=== PATIENT | female | born 1950 | race Caucasian/White ===

== ENCOUNTER 2022-07-10 10:41 | Inpatient (IN) | payer MEDICARE, OTHER ==
--- NOTE | 2022-07-10 10:53 | ERPHSYRPT ---
- History of Present Illness Time Seen by Provider: 07/10/22 10:53 Source: patient Exam Limitations: no limitations Physician History: This is a 72-year-old obese white female who sees nurse practitioner Anabel Watkins and presents with shortness of air that began approximately 1 week ago and is worsening. This morning the shortness of air became significant enough where she had to stop and hold onto a towel rack. Patient also has some edema in bilateral lower extremities in the left lower leg is worse than the right. Patient does not have any history of bleeding or clotting disorders. There is been no recent long travel. Patient is a current daily smoker of cigarettes. Patient has a history of hypertension, diabetes and hypothyroidism. Patient denies chest pain. She denies abdominal pain. Timing/Duration: week(s) (1), worse Severity of Dyspnea-Max: moderate Severity of Dyspnea-Current: moderate Possible Cause: no prior episodes Modifying Factors: Improves With: rest (Improves) Associated Symptoms: ankle swelling (Bilateral left greater than right), leg swelling (Bilateral left greater than right) Allergies/Adverse Reactions: No Known Drug Allergies Allergy (Verified 07/10/22 10:42) Home Medications: Glimepiride 4 mg [Amaryl 4 mg] 4 mg PO DAILY 09/06/14 [History] Levothyroxine Sodium 150 Mcg [Synthroid 150 Mcg] 150 mcg PO DAILY 09/06/14 [History] Pioglitazone 30 mg [Actos 30 MG] 30 mg PO DAILY 09/06/14 [History] Propranolol HCl 10 mg [Inderal 10 MG] 10 mg PO DAILY 09/06/14 [History] Triamterene/Hydrochlorothiazid [Triamterene-Hctz 75-50 mg Tab] 1 mg PO DAILY 09/06/14 [History] lisinopriL [Lisinopril] 5 mg PO DAILY 09/06/14 [History] Travel Risk - International Travel Have you traveled outside of the country in past 3 weeks: No - Coronavirus Screening Are you exhibiting any of the following symptoms?: Yes Symptoms: Shortness of Breath Close contact with a COVID-19 positive Pt in past 14-21 Days: No - Review of Systems Constitutional: No Symptoms Eyes: No Symptoms Ears, Nose, & Throat: No Symptoms Respiratory: Dyspnea Cardiac: No Symptoms Abdominal/Gastrointestinal: No Symptoms Genitourinary Symptoms: No Symptoms Musculoskeletal: Other (Bilateral lower extremity swelling left greater than right) Skin: No Symptoms Neurological: No Symptoms Psychological: No Symptoms Endocrine: No Symptoms Hematologic/Lymphatic: No Symptoms Immunological/Allergic: No Symptoms All Other Systems: Reviewed and Negative - Past Medical History Pertinent Past Medical History: No Neurological History: No Pertinent History ENT History: Cataracts Cardiac History: Hypertension Respiratory History: No Pertinent History Endocrine Medical History: Diabetes Type II, Hypothyroidism Musculoskeletal History: No Pertinent History GI Medical History: Gallbladder Disease History: No Pertinent History Psycho-Social History: No Pertinent History Female Reproductive Disorders: No Pertinent History - Past Surgical History Past Surgical History: Yes Neuro Surgical History: No Pertinent History Cardiac: No Pertinent History Respiratory: No Pertinent History Gastrointestinal: Cholecystectomy Genitourinary: No Pertinent History Musculoskeletal: No Pertinent History Female Surgical History: Other Other Surgical History: right breast lumpectomy - Social History Smoking Status: Current every day smoker How long have you smoked: 20 Exposure to second hand smoke: Yes Drug Use: none - Nursing Vital Signs Nursing Vital Signs: Initial Vital Signs Temperature 97.3 F 07/10/22 10:43 Pulse Rate 91 H 07/10/22 10:43 Respiratory Rate 20 07/10/22 10:43 Blood Pressure 179/93 07/10/22 10:43 O2 Sat by Pulse Oximetry 97 07/10/22 10:43 Pain Scale Pain Intensity 0 - Physical Exam General Appearance: no apparent distress, alert, anxiety, obese Eye Exam: PERRL/EOMI, eyes nml inspection Ears, Nose, Throat Exam: hearing grossly normal, normal ENT inspection, normal pharynx Neck Exam: normal inspection, non-tender, supple, full range of motion Respiratory Exam: normal breath sounds, lungs clear, airway intact, No chest tenderness, No respiratory distress Cardiovascular/Chest Exam: normal heart sounds, regular rate/rhythm Abdominal/Gastrointestinal Exam: soft, normal bowel sounds, No tenderness Rectal Exam: not done Extremity Exam: non-tender, normal range of motion, pedal edema (Bilateral lower extremity left greater than right), swelling (Bilateral lower extremity left greater than right) Neurologic Exam: alert, oriented x 3, cooperative, smoking pipe maker II-XII nml as tested, normal mood/affect, nml cerebellar function, nml station & gait, sensation nml Skin Exam: normal color, warm, dry Lymphatic Exam: No adenopathy SpO2 Interpretation: normal O2 Delivery: Room Air - Course Nursing assessment & vital signs reviewed: Yes EKG Interpreted by Me: RATE (72), Sinus Rhythm, NORMAL AXIS, NORMAL INTERVALS, Right Bundle Branch Block, NORMAL ST-T, Other (No acute ischemic changes on to day's EKG. This twelve-lead EKG was interpreted by me) Ordered Tests: Active Orders 24 hr Category Date Time Status EKG-ER Only STAT Care 07/10/22 11:04 Active IV Insertion STAT Care 07/10/22 11:04 Active Pulse Oximetry (ED) STAT Care 07/10/22 11:04 Active CHEST 1 VIEW (PORTABLE) Stat Exams 07/10/22 11:05 Completed CHEST WITH CONTRAST [CT] Stat Exams 07/10/22 12:13 Completed VENOUS UNILAT/LIMITED EXTREMIT [US] Stat Exams 07/10/22 11:03 Completed CBC W DIFF Stat Lab 07/10/22 11:15 Completed CMP Stat Lab 07/10/22 11:15 Completed D-DIMER QUANTITATIVE Stat Lab 07/10/22 11:15 Completed NT PRO BNP Stat Lab 07/10/22 11:15 Completed TROPONIN Q4H Lab 07/10/22 11:15 Completed TROPONIN Q4H Lab 07/10/22 15:15 Ordered TROPONIN Q4H Lab 07/10/22 19:15 Ordered Transfer Order Routine Transfer 07/10/22 Ordered Medication Summary Discontinued Medications Generic Name Dose Route Start Last Admin Trade Name Freq PRN Reason Stop Dose Admin Enoxaparin Sodium 100 mg 07/10/22 13:15 Enoxaparin Sodium 120 Mg/0.8 Ml Syringe SQ 07/10/22 13:16 STAT STA Sodium Chloride 500 mls @ 500 mls/hr 07/10/22 12:13 07/10/22 12:49 Sodium Chloride 0.9% 500 Ml IV 07/10/22 13:12 500 mls/hr .Q1H ONE Administration Sodium Chloride Confirm 07/10/22 12:47 Sodium Chloride 0.9% 500 Ml Administered 07/10/22 12:48 Dose 500 mls @ ud IV .STK-MED ONE Lab/Rad Data: Laboratory Result Diagrams 07/10/22 11:15 07/10/22 11:15 Laboratory Results 07/10/22 07/10/22 07/10/22 Range/Units 11:15 11:15 11:15 WBC (4.0-10.5) x10^3/uL RBC (4.1-5.4) x10^6/uL Hgb (12.0-16.0) g/dL Hct (35-47) % MCV (78-100) fL MCH (26-32) pg MCHC (32-36) g/dL RDW (11.5-14.0) % Plt Count (150-450) x10^3/uL MPV (7.5-11.0) fL Gran % (36.0-66.0) % Immature Gran % (Auto) (0.00-0.4) % Nucleat RBC Rel Count (0.00-0.1) % Eos # (Auto) (0-0.5) x10^3/uL Immature Gran # (Auto) (0.00-0.03) x10^3u/L Absolute Lymphs (auto) (1.0-4.6) x10^3/uL Absolute Monos (auto) (0.0-1.3) x10^3/uL Absolute Nucleated RBC (0.00-0.01) x10^3u/L Lymphocytes % (24.0-44.0) % Monocytes % (0.0-12.0) % Eosinophils % (0.00-5.0) % Basophils % (0.0-0.4) % Absolute Granulocytes (1.4-6.9) x10^3/uL Basophils # (0-0.4) x10^3/uL D-Dimer 4.98 H* (0.0-0.50) mg/L Sodium (137-145) mmol/L Potassium (3.5-5.1) mmol/L Chloride (98-107) mmol/L Carbon Dioxide (22-30) mmol/L Anion Gap (5-15) MEQ/L BUN (7-17) mg/dL Creatinine (0.52-1.04) mg/dL Estimated GFR ML/MIN Glucose (74-106) mg/dL Calcium (8.4-10.2) mg/dL Total Bilirubin (0.2-1.3) mg/dL AST (14-36) U/L ALT (0-35) U/L Alkaline Phosphatase (38-126) U/L Troponin I 0.017 (0.000-0.034) ng/mL NT-Pro-B Natriuret Pep (0-900) pg/mL Serum Total Protein (6.3-8.2) g/dL Albumin (3.5-5.0) g/dL Influenza Type A Ag NEGATIVE (NEGATIVE) Influenza Type B Ag NEGATIVE (NEGATIVE) RSV (PCR) NEGATIVE (Negative) SARS-CoV-2 (PCR) NEGATIVE (NEGATIVE) 07/10/22 07/10/22 Range/Units 11:15 11:15 WBC 8.0 (4.0-10.5) x10^3/uL RBC 5.14 (4.1-5.4) x10^6/uL Hgb 15.3 (12.0-16.0) g/dL Hct 46.5 (35-47) % MCV 90.5 (78-100) fL MCH 29.8 (26-32) pg MCHC 32.9 (32-36) g/dL RDW 14.7 H (11.5-14.0) % Plt Count 230 (150-450) x10^3/uL MPV 10.4 (7.5-11.0) fL Gran % 66.4 H (36.0-66.0) % Immature Gran % (Auto) 1.1 H (0.00-0.4) % Nucleat RBC Rel Count 0.0 (0.00-0.1) % Eos # (Auto) 0.04 (0-0.5) x10^3/uL Immature Gran # (Auto) 0.09 H (0.00-0.03) x10^3u/L Absolute Lymphs (auto) 1.90 (1.0-4.6) x10^3/uL Absolute Monos (auto) 0.62 (0.0-1.3) x10^3/uL Absolute Nucleated RBC 0.00 (0.00-0.01) x10^3u/L Lymphocytes % 23.7 L (24.0-44.0) % Monocytes % 7.7 (0.0-12.0) % Eosinophils % 0.5 (0.00-5.0) % Basophils % 0.6 (0.0-0.4) % Absolute Granulocytes 5.32 (1.4-6.9) x10^3/uL Basophils # 0.05 (0-0.4) x10^3/uL D-Dimer (0.0-0.50) mg/L Sodium 132 L (137-145) mmol/L Potassium 3.6 (3.5-5.1) mmol/L Chloride 94 L (98-107) mmol/L Carbon Dioxide 33 H (22-30) mmol/L Anion Gap 9.0 (5-15) MEQ/L BUN 17 (7-17) mg/dL Creatinine 0.92 (0.52-1.04) mg/dL Estimated GFR > 60.0 ML/MIN Glucose 286 H (74-106) mg/dL Calcium 9.4 (8.4-10.2) mg/dL Total Bilirubin 0.70 (0.2-1.3) mg/dL AST 24 (14-36) U/L ALT 21 (0-35) U/L Alkaline Phosphatase 70 (38-126) U/L Troponin I (0.000-0.034) ng/mL NT-Pro-B Natriuret Pep 851 (0-900) pg/mL Serum Total Protein 7.1 (6.3-8.2) g/dL Albumin 4.1 (3.5-5.0) g/dL Influenza Type A Ag (NEGATIVE) Influenza Type B Ag (NEGATIVE) RSV (PCR) (Negative) SARS-CoV-2 (PCR) (NEGATIVE) - Progress Progress: improved Air Movement: good Progress Note: 07/10/22 13:09 Chest x-ray is negative for any acute cardiopulmonary process. This x-ray was reviewed and interpreted by me. Venous Doppler left lower extremity is negative for DVT. CTA of chest shows diffuse, bilateral nonoccluding pulmonary emboli. Medical decision making: This patient has highly complex medical issue. The patient history, which I obtained from the patient and additional history from the the patient's , plus the physical findings on physical exam and evaluation interpretation of the patient's vital signs prompted me to order a series of blood work, perform a twelve-lead EKG as well as performing venous Doppler of left lower extremity and chest x-ray. I interpreted the chest x-ray and the above-stated findings as listed. The patient had borderline hypoxia, she denied chest pain, there is no evidence of pneumonia but there is bilateral, diffuse nonoccluding pulmonary emboli present. Based on all of the above and after discussion of all the above with Dr. Delgado Brown who is a hospitalist. Together, we formulated a plan and will be admitting the patient into the hospital on a monitored bed and provide the patient with a subcutaneous dose of Lovenox 100 mg and add Eliquis orally. We will be repeating labs in the morning. This plan was also discussed with the patient the patient's spouse Blood Culture(s) Obtained: Yes Antibiotics given: No Discussed with : Kerry Counseled pt/family regarding: lab results, diagnosis, need for follow-up, rad results - Departure Departure Disposition: In-patient Admission Clinical Impression: Hypoxia, Pulmonary emboli Condition: Stable Critical Care Time: Yes Critical Care Time(excluding separately billable procedures): Critical 30-74 mins (45 minutes) Referrals: DANIEL WATKINS NP [Primary Care Provider] - Follow up/PCP as directed
[2022-07-10 11:20] LABS: Absolute Neutrophil Ct (ANC) 5.32 x10^3/uL (1.4-6.9); BASOPHIL % 0.6 % (0.0-0.4); Basophil (Absolute #) 0.05 x10^3/uL (0-0.4); Eosinophil % 0.5 % (0.00-5.0); Eosinophil (Absolute #) 0.04 x10^3/uL (0-0.5); Hematocrit 46.5 % (35-47); Hemoglobin 15.3 g/dL (12.0-16.0); IMMATURE GRAN # 0.09 x10^3u/L (0.00-0.03); IMMATURE GRAN % 1.1 % (0.00-0.4); Lymphocytes % 23.7 % (24.0-44.0); Mean Cell Volume 90.5 fL (78-100); Mean Corpuscular Hemoglobin 29.8 pg (26-32); Mean Corpuscular Hgb Concent. 32.9 g/dL (32-36); Mean Platelet Volume 10.4 fL (7.5-11.0); Monocyte (Absolute #) 0.62 x10^3/uL (0.0-1.3); Monocytes % 7.7 % (0.0-12.0); Neutrophil % 66.4 % (36.0-66.0); Platelet Count 230 x10^3/uL (150-450); Red Blood Count 5.14 x10^6/uL (4.1-5.4); Red Cell Distribution Width 14.7 % (11.5-14.0)
--- NOTE | 2022-07-10 11:34 | XRAY ---
Indication: Short of breath one month. Comparison: None Portable chest demonstrates normal heart and lungs. Bony thorax intact with osteopenia and mild degenerative changes.
[2022-07-10 11:56] LABS: ALBUMIN 4.1 g/dL (3.5-5.0); ALKALINE PHOSPHATASE 70 U/L (38-126); BLOOD UREA NITROGEN 17 mg/dL (7-17); CHLORIDE 94 mmol/L (98-107); Calcium 9.4 mg/dL (8.4-10.2); Carbon Dioxide 33 mmol/L (22-30); Creatinine 1 0.92 mg/dL (0.52-1.04); EST GLOMERULAR FILTRATION RATE > 60.0 ML/MIN; Glucose 286 mg/dL (74-106); NT PRO BNP 851 pg/mL (0-900); Potassium 3.6 mmol/L (3.5-5.1); SGOT/AST 24 U/L (14-36); SGPT/ALT 21 U/L (0-35); SODIUM 132 mmol/L (137-145); Total Protein 7.1 g/dL (6.3-8.2)
[2022-07-10 12:03] LABS: INFLUENZA A NEGATIVE (NEGATIVE); INFLUENZA B NEGATIVE (NEGATIVE); RESPIRATORY SYNCTIAL VIRUS NEGATIVE (Negative); SARS-CoV-2 Xpert Express NEGATIVE (NEGATIVE)
--- NOTE | 2022-07-10 12:10 | XRAY ---
Indication: Left leg swelling. Short of breath. Two-dimensional sonogram and color Doppler imaging of the major venous vessels of the left leg performed. Comparison: None No thrombus seen in the examined deep venous vessels of the left leg including greater saphenous vein. Veins demonstrate normal compressibility. Venous waveforms are normal with and without augmentation. Impression: Left leg negative for DVT.
[2022-07-10] MEDS ORDERED: Sodium Chloride 0.9% 500 ML 500 ML IV ONE ×2 (12:13→12:47)
--- NOTE | 2022-07-10 12:54 | XRAY ---
Indication: Short of breath. Pulmonary embolus. Negative left leg venous ultrasound. Multiple contiguous axial images obtained through the chest using 80 cc Isovue 370 contrast and PE protocol. Comparison: None Good opacification of the pulmonary arteries to include the lobar and segmental branches. Nonoccluding pulmonary emboli seen in the distal right main pulmonary artery extending into all right lung lobar branches. Lesser nonoccluding pulmonary emboli seen in the distal left main pulmonary artery also extending into lobar/segmental branches. Heart not enlarged. Aorta is mildly arteriosclerotic without aneurysm/dissection. No pathologic mediastinal/hilar lymphadenopathy. Lungs are inflated and clear. Osseous structures intact with flowing osteophytes throughout the spine. Limited upper abdomen demonstrates 1 cm left lobe and 2.3 cm right lobe hypodense lesions with centripetal enhancement favoring hemangiomas. Impression: 1. Diffuse nonoccluding bilateral pulmonary emboli as detailed. 2. Incidental hepatic hypodense lesions with centripetal enhancement favoring hemangiomas.
[2022-07-10] MEDS ORDERED: ENOXAPARIN SODIUM SQ STA (13:15)
[2022-07-10] MEDS ORDERED: ENOXAPARIN SODIUM SQ ONE (13:32)
[2022-07-10] MEDS ORDERED: HUMULIN R SQ PRN (13:47)
[2022-07-10] MEDS ORDERED: TYLENOL 325 MG PO PRN (13:47)
[2022-07-10] MEDS ORDERED: Zofran 4 MG/2 ML VIAL IV PRN (13:47)
[2022-07-10] MEDS: Sodium Chloride 0.9% 1000 ML 1,000 ML IV SCH (14:02)
[2022-07-10] MEDS: ELIQUIS 2.5 MG TABLET PO SCH (21:07)
[2022-07-11 05:12] LABS: Absolute Neutrophil Ct (ANC) 3.31 x10^3/uL (1.4-6.9); BASOPHIL % 0.8 % (0.0-0.4); Basophil (Absolute #) 0.05 x10^3/uL (0-0.4); Eosinophil % 0.8 % (0.00-5.0); Eosinophil (Absolute #) 0.05 x10^3/uL (0-0.5); Hematocrit 43.6 % (35-47); Hemoglobin 14.2 g/dL (12.0-16.0); IMMATURE GRAN # 0.05 x10^3u/L (0.00-0.03); IMMATURE GRAN % 0.8 % (0.00-0.4); Lymphocyte (Absolute #) 2.17 x10^3/uL (1.0-4.6); Lymphocytes % 35.1 % (24.0-44.0); Mean Corpuscular Hemoglobin 29.6 pg (26-32); Mean Corpuscular Hgb Concent. 32.6 g/dL (32-36); Mean Platelet Volume 10.3 fL (7.5-11.0); Monocyte (Absolute #) 0.56 x10^3/uL (0.0-1.3); Neutrophil % 53.5 % (36.0-66.0); Platelet Count 206 x10^3/uL (150-450); Red Blood Count 4.79 x10^6/uL (4.1-5.4); Red Cell Distribution Width 14.7 % (11.5-14.0); White Blood Count 6.2 x10^3/uL (4.0-10.5)
[2022-07-11 06:02] LABS: INR 1.08 (0.8-3.0); PROTIME 11.4 SECONDS (9.4-12.5)
[2022-07-11 06:24] LABS: ALBUMIN 3.7 g/dL (3.5-5.0); ANION GAP 7.8 MEQ/L (5-15); BILIRUBIN,TOTAL 0.5 mg/dL (0.2-1.3); Creatinine 1 0.98 mg/dL (0.52-1.04); Potassium 3.2 mmol/L (3.5-5.1); Total Protein 6.7 g/dL (6.3-8.2)
[2022-07-11] MEDS: AMARYL 4 MG PO SCH (07:38)
[2022-07-11] MEDS ORDERED: HOLD METFORMIN PRODUCTS FOR 48 HOURS MC SCH (09:00)
[2022-07-11] MEDS: Zestril 5 MG PO SCH (09:04)
[2022-07-11] MEDS: Actos 30 MG PO SCH (09:04)
[2022-07-11] MEDS: Inderal PO SCH (09:04)
[2022-07-11] MEDS: SYNTHROID 150 MCG PO SCH (09:04)
[2022-07-11] MEDS: Maxzide-25MG Tablet PO SCH (09:04)
[2022-07-11] MEDS: ELIQUIS 2.5 MG TABLET PO SCH ×2 (09:05→21:12)
[2022-07-11] MEDS ORDERED: PROPRANOLOL HCL 10 MG PO SCH (10:00)
[2022-07-11 10:40] LABS: Appearance Cloudy (Clear); Bacteria Few /HPF (None Seen); Bilirubin Negative (Negative); Blood Large (Negative); Epithelial Cells Few /HPF (None Seen); Glucose, Urine Negative (Negative); Ketones Negative (Negative); Leukocyte Esterase Moderate (Negative); Nitrite Negative (Negative); Protein,Urine Dip Trace (Negative); Specific Gravity >=1.030 (1.005-1.030); WBC 51-100 /HPF (0-5)
[2022-07-11 10:42] LABS: ADD URINE CULTURE? YES (NO)
[2022-07-11] MEDS: Sodium Chloride 0.9% 1000 ML 1,000 ML IV SCH (10:59)
--- NOTE | 2022-07-11 13:05 | PCM.HP ---
History of Present Illness - Chief Complaint Chief Complaint: PE History of Present Illness: is a 72 year old female pt of [facility] with HTN, DM II, hypothyroidism, daily TOB smoker who was admitted through ER with bilat PEs (non-occluding). She had a swollen LLE which was neg for DVT. WBC nl. Na low at 132 (is 137 today). Pt had been SOB x 1 week, worsening. Denies CP or palpitations. Today she is having cough and drainage. She was given 1 dose of lovenox SQ, and is being started on Eliquis. - Review of Systems Ears, Nose, & Throat: Sinus Drainage Respiratory: Cough, Short Of Breath Cardiac: Edema All Other Systems: Reviewed and Negative Medications & Allergies Home Medications: Home Medication List Glimepiride 4 mg [Amaryl 4 mg] 4 mg PO DAILY 09/06/14 [History Confirmed 07/10/22] Levothyroxine Sodium 150 Mcg [Synthroid 150 Mcg] 150 mcg PO DAILY 09/06/14 [History Confirmed 07/10/22] Pioglitazone 30 mg [Actos 30 MG] 30 mg PO DAILY 09/06/14 [History Confirmed 07/10/22] Propranolol HCl 10 mg [Inderal 10 MG] 10 mg PO DAILY 09/06/14 [History Confirmed 07/10/22] Triamterene/Hydrochlorothiazid [Triamterene-Hctz 75-50 mg Tab] 1 mg PO DAILY 09/06/14 [History Confirmed 07/10/22] lisinopriL [Lisinopril] 5 mg PO DAILY 09/06/14 [History Confirmed 07/10/22] Allergies/Adverse Reactions: Allergies Allergy/AdvReac Type Severity Reaction Status Date / Time No Known Drug Allergies Allergy Verified 07/10/22 10:42 - Past Medical History Past Medical History: No Neurological History: No Pertinent History ENT History: Cataracts Cardiac History: Hypertension Respiratory History: No Pertinent History Endocrine Medical History: Diabetes Type II, Hypothyroidism Musculoskelatal History: No Pertinent History GI Medical History: Gallbladder Disease History: No Pertinent History Pyscho-Social History: No Pertinent History Reproductive Disorders: No Pertinent History - Female History Are you now?: No - Past Surgical History Past Surgical History: Yes Neuro Surgical History: No Pertinent History Cardiac History: No Pertinent History Respiratory Surgery: No Pertinent History GI Surgical History: Cholecystectomy Genitourinary Surgical Hx: No Pertinent History Musculskeletal Surgical Hx: No Pertinent History Female Surgical History: Other Other Surgical History: right breast lumpectomy - Social History Smoking Status: Current every day smoker How long have you smoked: 20 Exposure to second hand smoke: Yes Alcohol: None Drug Use: none - Physical Exam Vital Signs: Vital Signs - 24 hr Temp Pulse Resp BP Pulse Ox 07/11/22 11:01 97.7 F 66 17 138/63 94 L 07/11/22 07:31 97.5 F 72 18 130/61 96 07/11/22 05:44 94 L 07/11/22 04:00 97.7 F 66 19 127/58 93 L 07/11/22 00:00 98.0 F 65 18 128/64 95 07/10/22 17:56 95 07/10/22 16:53 96 07/10/22 16:31 96.9 F 69 17 152/66 93 L 07/10/22 13:58 62 18 94 L 07/10/22 13:48 97.1 F 66 18 145/91 07/10/22 13:47 96 07/10/22 13:28 97.3 F 74 18 155/71 92 L General Appearance: no apparent distress, alert, obese Neurologic Exam: oriented x 3, cooperative Eye Exam: eyes nml inspection Ears, Nose, Throat Exam: moist mucous membranes Neck Exam: normal inspection Respiratory Exam: normal breath sounds, lungs clear, No crackles/rales, No rhonchi, No wheezing Cardiovascular Exam: regular rate/rhythm, normal heart sounds, No murmur Gastrointestinal/Abdomen Exam: soft, normal bowel sounds, No tenderness, No distention, No mass, No guarding, No rebound Back Exam: normal inspection, No rash Extremity Exam: swelling (LLE 1+, RLE trace) Results - Labs Lab/Micro Results: Lab Results-Last 24 Hours 07/10/22 07/10/22 07/10/22 Range/Units 15:28 17:00 19:45 WBC (4.0-10.5) x10^3/uL RBC (4.1-5.4) x10^6/uL Hgb (12.0-16.0) g/dL Hct (35-47) % MCV (78-100) fL MCH (26-32) pg MCHC (32-36) g/dL RDW (11.5-14.0) % Plt Count (150-450) x10^3/uL MPV (7.5-11.0) fL Gran % (36.0-66.0) % Immature Gran % (Auto) (0.00-0.4) % Nucleat RBC Rel Count (0.00-0.1) % Eos # (Auto) (0-0.5) x10^3/uL Immature Gran # (Auto) (0.00-0.03) x10^3u/L Absolute Lymphs (auto) (1.0-4.6) x10^3/uL Absolute Monos (auto) (0.0-1.3) x10^3/uL Absolute Nucleated RBC (0.00-0.01) x10^3u/L Lymphocytes % (24.0-44.0) % Monocytes % (0.0-12.0) % Eosinophils % (0.00-5.0) % Basophils % (0.0-0.4) % Absolute Granulocytes (1.4-6.9) x10^3/uL Basophils # (0-0.4) x10^3/uL PT (9.4-12.5) SECONDS INR (0.8-3.0) Sodium (137-145) mmol/L Potassium (3.5-5.1) mmol/L Chloride (98-107) mmol/L Carbon Dioxide (22-30) mmol/L Anion Gap (5-15) MEQ/L BUN (7-17) mg/dL Creatinine (0.52-1.04) mg/dL Estimated GFR ML/MIN Glucose (74-106) mg/dL POC Glucometer 131 H (74 to 106) mg/dL Calcium (8.4-10.2) mg/dL Total Bilirubin (0.2-1.3) mg/dL AST (14-36) U/L ALT (0-35) U/L Alkaline Phosphatase (38-126) U/L Troponin I 0.014 0.017 (0.000-0.034) ng/mL Serum Total Protein (6.3-8.2) g/dL Albumin (3.5-5.0) g/dL Urine Color (Yellow) Urine Appearance (Clear) Urine pH (4.6-8.0) Ur Specific [place] (1.005-1.030) Urine Protein (Negative) Urine Glucose (UA) (Negative) mg/dL Urine Ketones (Negative) Urine Blood (Negative) Urine Nitrite (Negative) Urine Bilirubin (Negative) Urine Urobilinogen (0.2) mg/dL Ur Leukocyte Esterase (Negative) U Hyaline Cast (Auto) (0-2) /LPF Urine Microscopic RBC (0-5) /HPF Urine Microscopic WBC (0-5) /HPF Ur Epithelial Cells (None Seen) /HPF Urine Bacteria (None Seen) /HPF Urine Culture Reflexed (NO) 07/10/22 07/11/22 07/11/22 Range/Units 20:31 05:12 05:12 WBC 6.2 (4.0-10.5) x10^3/uL RBC 4.79 (4.1-5.4) x10^6/uL Hgb 14.2 (12.0-16.0) g/dL Hct 43.6 (35-47) % MCV 91.0 (78-100) fL MCH 29.6 (26-32) pg MCHC 32.6 (32-36) g/dL RDW 14.7 H (11.5-14.0) % Plt Count 206 (150-450) x10^3/uL MPV 10.3 (7.5-11.0) fL Gran % 53.5 (36.0-66.0) % Immature Gran % (Auto) 0.8 H (0.00-0.4) % Nucleat RBC Rel Count 0.0 (0.00-0.1) % Eos # (Auto) 0.05 (0-0.5) x10^3/uL Immature Gran # (Auto) 0.05 H (0.00-0.03) x10^3u/L Absolute Lymphs (auto) 2.17 (1.0-4.6) x10^3/uL Absolute Monos (auto) 0.56 (0.0-1.3) x10^3/uL Absolute Nucleated RBC 0.00 (0.00-0.01) x10^3u/L Lymphocytes % 35.1 (24.0-44.0) % Monocytes % 9.0 (0.0-12.0) % Eosinophils % 0.8 (0.00-5.0) % Basophils % 0.8 (0.0-0.4) % Absolute Granulocytes 3.31 (1.4-6.9) x10^3/uL Basophils # 0.05 (0-0.4) x10^3/uL PT (9.4-12.5) SECONDS INR (0.8-3.0) Sodium 137 (137-145) mmol/L Potassium 3.2 L (3.5-5.1) mmol/L Chloride 98 (98-107) mmol/L Carbon Dioxide 34 H (22-30) mmol/L Anion Gap 7.8 (5-15) MEQ/L BUN 17 (7-17) mg/dL Creatinine 0.98 (0.52-1.04) mg/dL Estimated GFR 59.0 ML/MIN Glucose 92 (74-106) mg/dL POC Glucometer 194 H (74 to 106) mg/dL Calcium 9.0 (8.4-10.2) mg/dL Total Bilirubin 0.50 (0.2-1.3) mg/dL AST 22 (14-36) U/L ALT 19 (0-35) U/L Alkaline Phosphatase 62 (38-126) U/L Troponin I (0.000-0.034) ng/mL Serum Total Protein 6.7 (6.3-8.2) g/dL Albumin 3.7 (3.5-5.0) g/dL Urine Color (Yellow) Urine Appearance (Clear) Urine pH (4.6-8.0) Ur Specific [place] (1.005-1.030) Urine Protein (Negative) Urine Glucose (UA) (Negative) mg/dL Urine Ketones (Negative) Urine Blood (Negative) Urine Nitrite (Negative) Urine Bilirubin (Negative) Urine Urobilinogen (0.2) mg/dL Ur Leukocyte Esterase (Negative) U Hyaline Cast (Auto) (0-2) /LPF Urine Microscopic RBC (0-5) /HPF Urine Microscopic WBC (0-5) /HPF Ur Epithelial Cells (None Seen) /HPF Urine Bacteria (None Seen) /HPF Urine Culture Reflexed (NO) 07/11/22 07/11/2223 Range/Units 05:12 07:07 09:58 WBC (4.0-10.5) x10^3/uL RBC (4.1-5.4) x10^6/uL Hgb (12.0-16.0) g/dL Hct (35-47) % MCV (78-100) fL MCH (26-32) pg MCHC (32-36) g/dL RDW (11.5-14.0) % Plt Count (150-450) x10^3/uL MPV (7.5-11.0) fL Gran % (36.0-66.0) % Immature Gran % (Auto) (0.00-0.4) % Nucleat RBC Rel Count (0.00-0.1) % Eos # (Auto) (0-0.5) x10^3/uL Immature Gran # (Auto) (0.00-0.03) x10^3u/L Absolute Lymphs (auto) (1.0-4.6) x10^3/uL Absolute Monos (auto) (0.0-1.3) x10^3/uL Absolute Nucleated RBC (0.00-0.01) x10^3u/L Lymphocytes % (24.0-44.0) % Monocytes % (0.0-12.0) % Eosinophils % (0.00-5.0) % Basophils % (0.0-0.4) % Absolute Granulocytes (1.4-6.9) x10^3/uL Basophils # (0-0.4) x10^3/uL PT 11.4 (9.4-12.5) SECONDS INR 1.08 (0.8-3.0) Sodium (137-145) mmol/L Potassium (3.5-5.1) mmol/L Chloride (98-107) mmol/L Carbon Dioxide (22-30) mmol/L Anion Gap (5-15) MEQ/L BUN (7-17) mg/dL Creatinine (0.52-1.04) mg/dL Estimated GFR ML/MIN Glucose (74-106) mg/dL POC Glucometer 109 H (74 to 106) mg/dL Calcium (8.4-10.2) mg/dL Total Bilirubin (0.2-1.3) mg/dL AST (14-36) U/L ALT (0-35) U/L Alkaline Phosphatase (38-126) U/L Troponin I (0.000-0.034) ng/mL Serum Total Protein (6.3-8.2) g/dL Albumin (3.5-5.0) g/dL Urine Color Yellow (Yellow) Urine Appearance Cloudy A (Clear) Urine pH 6.0 (4.6-8.0) Ur Specific [place] >=1.030 A (1.005-1.030) Urine Protein Trace A (Negative) Urine Glucose (UA) Negative (Negative) mg/dL Urine Ketones Negative (Negative) Urine Blood Large A (Negative) Urine Nitrite Negative (Negative) Urine Bilirubin Negative (Negative) Urine Urobilinogen 1.0 A (0.2) mg/dL Ur Leukocyte Esterase Moderate A (Negative) U Hyaline Cast (Auto) 3-5 A (0-2) /LPF Urine Microscopic RBC 6-10 A (0-5) /HPF Urine Microscopic WBC 51-100 A (0-5) /HPF Ur Epithelial Cells Few (None Seen) /HPF Urine Bacteria Few A (None Seen) /HPF Urine Culture Reflexed YES (NO) 07/11/22 Range/Units 11:15 WBC (4.0-10.5) x10^3/uL RBC (4.1-5.4) x10^6/uL Hgb (12.0-16.0) g/dL Hct (35-47) % MCV (78-100) fL MCH (26-32) pg MCHC (32-36) g/dL RDW (11.5-14.0) % Plt Count (150-450) x10^3/uL MPV (7.5-11.0) fL Gran % (36.0-66.0) % Immature Gran % (Auto) (0.00-0.4) % Nucleat RBC Rel Count (0.00-0.1) % Eos # (Auto) (0-0.5) x10^3/uL Immature Gran # (Auto) (0.00-0.03) x10^3u/L Absolute Lymphs (auto) (1.0-4.6) x10^3/uL Absolute Monos (auto) (0.0-1.3) x10^3/uL Absolute Nucleated RBC (0.00-0.01) x10^3u/L Lymphocytes % (24.0-44.0) % Monocytes % (0.0-12.0) % Eosinophils % (0.00-5.0) % Basophils % (0.0-0.4) % Absolute Granulocytes (1.4-6.9) x10^3/uL Basophils # (0-0.4) x10^3/uL PT (9.4-12.5) SECONDS INR (0.8-3.0) Sodium (137-145) mmol/L Potassium (3.5-5.1) mmol/L Chloride (98-107) mmol/L Carbon Dioxide (22-30) mmol/L Anion Gap (5-15) MEQ/L BUN (7-17) mg/dL Creatinine (0.52-1.04) mg/dL Estimated GFR ML/MIN Glucose (74-106) mg/dL POC Glucometer 200 H (74 to 106) mg/dL Calcium (8.4-10.2) mg/dL Total Bilirubin (0.2-1.3) mg/dL AST (14-36) U/L ALT (0-35) U/L Alkaline Phosphatase (38-126) U/L Troponin I (0.000-0.034) ng/mL Serum Total Protein (6.3-8.2) g/dL Albumin (3.5-5.0) g/dL Urine Color (Yellow) Urine Appearance (Clear) Urine pH (4.6-8.0) Ur Specific [place] (1.005-1.030) Urine Protein (Negative) Urine Glucose (UA) (Negative) mg/dL Urine Ketones (Negative) Urine Blood (Negative) Urine Nitrite (Negative) Urine Bilirubin (Negative) Urine Urobilinogen (0.2) mg/dL Ur Leukocyte Esterase (Negative) U Hyaline Cast (Auto) (0-2) /LPF Urine Microscopic RBC (0-5) /HPF Urine Microscopic WBC (0-5) /HPF Ur Epithelial Cells (None Seen) /HPF Urine Bacteria (None Seen) /HPF Urine Culture Reflexed (NO) Accuchecks Date 07/11/22 Date 07/11/22 Date 07/10/22 Date 07/10/22 Time 07:30 Time 21:00 Time 17:05 - Radiology Impressions Radiology Exams & Impressions: Radiology Procedures Category Date Time Status CHEST 1 VIEW (PORTABLE) Stat Exams 07/10/22 11:05 Completed CHEST WITH CONTRAST [CT] Stat Exams 07/10/22 12:13 Completed ECHO W/2D AND DOPPLER [US] Routine Exams 07/11/22 11:24 Ordered VENOUS UNILAT/LIMITED EXTREMIT [US] Stat Exams 07/10/22 11:03 Completed - Other Procedures and Tests Respiratory Therapy 07/10/22 13:47 Oxygen Nasal Cannula 2 lpm Assessment/Plan (1) Pulmonary emboli Current Visit: Yes Status: Acute Qualifiers: Pulmonary embolism type: multiple subsegmental (without acute cor pulmonale) Qualified Code(s): I26.94 - Multiple subsegmental pulmonary emboli without acute cor pulmonale Assessment & Plan: doing echo today. Pt must stop smoking. Had 1 dose lovenox, now on eliquis. Code(s): I26.99 - OTHER PULMONARY EMBOLISM WITHOUT ACUTE COR PULMONALE (2) Hypoxia Current Visit: Yes Status: Acute Assessment & Plan: do overnight pulse ox study, may need home on O2 tomorrow. Code(s): R09.02 - HYPOXEMIA (3) Tobacco abuse Current Visit: Yes Status: Chronic Code(s): Z72.0 - TOBACCO USE
[2022-07-11] MEDS ORDERED: ELIQUIS 2.5 MG TABLET PO ONE (13:30)
[2022-07-12] MEDS: AMARYL 4 MG PO SCH (07:03)
[2022-07-12] MEDS: ROCEPHIN 1 Gm-D5w 50 ml Bag** 1 G/50 ML IVPB IV SCH ×2 (07:04→07:42)
[2022-07-12 07:36] VITALS: BP 139/69; PULSE 69; O2SAT 95
--- NOTE | 2022-07-12 09:11 | PCM.DS ---
Discharge Summary Date of Admission: 07/10/22 13:44 Admitting Physician: ANNY CARRASCO Primary Care Provider: DANIEL WATKINS Allergies Allergies No Known Drug Allergies Allergy (Verified 07/10/22 10:42) Hospital Summary - Hospital Course Hospital Course: is a 72 year old female pt of [facility] with HTN, DM II, hypothyroidism, daily TOB smoker who was admitted through ER with bilat PEs (non-occluding). She had a swollen LLE which was neg for DVT. WBC nl. Pt had been SOB x 1 week, worsening. Today her breathing is good, no SOB. She just c/o being tired; had increased RLS sx last night which made it difficult to sleep. She has had some intermittent hypoxia here; was unable to complete overnight pulse ox last night d/t difficulty sleeping. Will do study at home. She was given 1 dose of lovenox SQ initially, then started on Eliquis. If cover ed by insurance, she will be sent home on Eliquis today. - Vitals & Intake/Output Vital Signs: Vital Signs Temperature 97.5 F 07/12/22 07:35 Pulse Rate 69 07/12/22 07:35 Respiratory Rate 16 07/12/22 07:35 Blood Pressure 139/69 07/12/22 07:35 O2 Sat by Pulse Oximetry 95 07/12/22 07:35 Intake & Output: Intake & Output 07/09/22 07/10/22 07/11/22 07/12/22 11:59 11:59 11:59 11:59 Intake Total 1200 970 Output Total 200 800 Balance 1000 170 Weight 103.7 kg 99.4 kg - Lab Result Diagrams: 07/11/22 05:12 07/11/22 05:12 Lab Results-Last 24 Hrs: Lab Results-Last 24 Hours 07/11/22 07/11/22 07/11/22 Range/Units 09:58 11:15 16:38 POC Glucometer 200 H 138 H (74 to 106) mg/dL Hemoglobin A1c (4.5-6.0) % Urine Color Yellow (Yellow) Urine Appearance Cloudy A (Clear) Urine pH 6.0 (4.6-8.0) Ur Specific [place] >=1.030 A (1.005-1.030) Urine Protein Trace A (Negative) Urine Glucose (UA) Negative (Negative) mg/dL Urine Ketones Negative (Negative) Urine Blood Large A (Negative) Urine Nitrite Negative (Negative) Urine Bilirubin Negative (Negative) Urine Urobilinogen 1.0 A (0.2) mg/dL Ur Leukocyte Esterase Moderate A (Negative) U Hyaline Cast (Auto) 3-5 A (0-2) /LPF Urine Microscopic RBC 6-10 A (0-5) /HPF Urine Microscopic WBC 51-100 A (0-5) /HPF Ur Epithelial Cells Few (None Seen) /HPF Urine Bacteria Few A (None Seen) /HPF Urine Culture Reflexed YES (NO) 07/11/22 07/11/22 07/12/22 Range/Units 18:00 20:40 07:22 POC Glucometer 91 96 (74 to 106) mg/dL Hemoglobin A1c 6.67 H (4.5-6.0) % Urine Color (Yellow) Urine Appearance (Clear) Urine pH (4.6-8.0) Ur Specific [place] (1.005-1.030) Urine Protein (Negative) Urine Glucose (UA) (Negative) mg/dL Urine Ketones (Negative) Urine Blood (Negative) Urine Nitrite (Negative) Urine Bilirubin (Negative) Urine Urobilinogen (0.2) mg/dL Ur Leukocyte Esterase (Negative) U Hyaline Cast (Auto) (0-2) /LPF Urine Microscopic RBC (0-5) /HPF Urine Microscopic WBC (0-5) /HPF Ur Epithelial Cells (None Seen) /HPF Urine Bacteria (None Seen) /HPF Urine Culture Reflexed (NO) Micro Results-Entire Visit: Accuchecks Date 07/12/22 Date 07/11/22 Date 07/11/22 Date 07/11/22 Time 21:00 - Radiology Exams Ordered Rad Exams-Entire Visit: Radiology Procedures Category Date Time Status CHEST 1 VIEW (PORTABLE) Stat Exams 07/10/22 11:05 Completed CHEST WITH CONTRAST [CT] Stat Exams 07/10/22 12:13 Completed ECHO W/2D AND DOPPLER [US] Routine Exams 07/11/22 11:24 Taken VENOUS UNILAT/LIMITED EXTREMIT [US] Stat Exams 07/10/22 11:03 Completed - Procedures and Test Procedures and Tests throughout Hospitalization: Therapy Orders & Screens 07/10/22 13:47 EKG REPEAT IN AM Comment: Oxygen Nasal Cannula 2 lpm Comment: Respiratory Therapy Consult ROUTINE Comment: Reason For Exam: 07/10/22 13:58 Smoking Cessation Education ONCE Comment: Diagnosis: PE Smoking Status: Current every day smoker How long have you smoked: 20 Have you smoked in the past 12 months: Yes Approximately how many cigarettes per day: 20 Do you dip or chew tobacco: No 07/12/22 08:28 RT Miscellaneous Order ROUTINE Comment: Physician Instructions: Reason For Exam: OVERNIGHT PULSE AT HOME OTPT Diagnosis: PE Discharge Exam General Appearance: no apparent distress, obese Neurologic Exam: oriented x 3, cooperative Eye Exam: eyes nml inspection Ears, Nose, Throat Exam: moist mucous membranes Neck Exam: normal inspection Respiratory Exam: normal breath sounds, lungs clear, No crackles/rales, No rhonchi, No wheezing Cardiovascular Exam: regular rate/rhythm, normal heart sounds, No murmur Gastrointestinal/Abdomen Exam: soft, normal bowel sounds, No tenderness, No distention, No mass, No guarding, No rebound Back Exam: normal inspection, No rash Extremity Exam: normal inspection, swelling (trace pretibial edema bilat) Skin Exam: normal color, warm, dry, No rash Final Diagnosis/Problem List - Final Discharge Diagnosis/Problem (1) Pulmonary emboli Current Visit: Yes Status: Acute Assessment & Plan: Home on Eliquis, if covered by insurance. Code(s): I26.99 - OTHER PULMONARY EMBOLISM WITHOUT ACUTE COR PULMONALE (2) Hypoxia Current Visit: Yes Status: Acute Assessment & Plan: Home overnight pulse ox. Code(s): R09.02 - HYPOXEMIA (3) Tobacco abuse Current Visit: Yes Status: Chronic Assessment & Plan: Told pt she MUST stop smoking. Doesn't need patches, she says. Code(s): Z72.0 - TOBACCO USE - Discharge Disposition: Home, Self-Care Condition: Stable Prescriptions: New Apixaban [Eliquis 5 mg Tablet] 5 mg PO BID 30 Days #84 tablet Lactobacillus Acidophilus [Acidophilus TABLET] 1 tab PO BID #10 tablet Apixaban [Eliquis 2.5 mg Tablet] 10 mg PO BID 5 Days #10 tablet Cephalexin Mh 500 mg [Keflex 500 mg] 500 mg PO Q6H 4 Days #16 cap Continue Levothyroxine Sodium 150 Mcg [Synthroid 150 Mcg] 150 mcg PO DAILY Triamterene/Hydrochlorothiazid [Triamterene-Hctz 75-50 mg Tab] 1 mg PO DAILY Propranolol HCl 10 mg [Inderal 10 MG] 10 mg PO DAILY Pioglitazone 30 mg [Actos 30 MG] 30 mg PO DAILY lisinopriL [Lisinopril] 5 mg PO DAILY Glimepiride 4 mg [Amaryl 4 mg] 4 mg PO DAILY Instructions: Pulmonary Embolism (Blood Clot in the Lungs), Quitting Smoking for Older Adults, Apixaban Follow up with: ANNY CARRASCO [ACTIVE STAFF] -
[2022-07-12] MEDS: Maxzide-25MG Tablet PO SCH (09:13)
[2022-07-12] MEDS: Actos 30 MG PO SCH (09:13)
[2022-07-12] MEDS: ELIQUIS 2.5 MG TABLET PO SCH (09:13)
[2022-07-12] MEDS: Zestril 5 MG PO SCH (09:14)
[2022-07-12] MEDS: Inderal PO SCH (09:14)
[2022-07-12] MEDS: SYNTHROID 150 MCG PO SCH (09:14)
--- NOTE | 2022-07-12 15:24 | ECHO ---
DATE OF PROCEDURE: 07/11/2022 CLINICAL INFORMATION: Pulmonary embolism. The M-mode 2D, and Doppler echocardiogram are limited by the patient's habitus and inability to lay flat. The left ventricle is normal in size. There is no thrombus present. The wall thickness is normal. There is normal contractility of the left ventricle. The ejection fraction is calculated to be 56%. There is severe decrease in the right ventricular systolic function. The left atrium is normal in size. The interatrial septum is intact. The right atrium is dilated. The aortic valve is not well visualized. The mitral valve is normal. The tricuspid valve is normal. The pulmonic valve is not well visualized. The aortic root is normal. There is no pericardial effusion present. IMPRESSION: 1) SEVERE DECREASE IN RIGHT VENTRICULAR SYSTOLIC FUNCTION. 2) DILATED RIGHT ATRIUM. 3) NORMAL CONTRACTILITY OF THE LEFT VENTRICLE.
== END 2022-07-12 11:17 | disposition home or self-care (01) | DRG 176 ==
LOC: ED 10:41 → OBSVTOIN 13:44 → MED SURG 13:44 → INTOOBSV 13:44
PROVIDERS: ADMIT Family Medicine; ATTEND Family Medicine
DX: I26.99 Other pulmonary embolism without acute cor pulmonale (principal); R09.02 Hypoxemia; I10 Essential (primary) hypertension; E11.9 Type 2 diabetes mellitus without complications; E03.9 Hypothyroidism, unspecified; R60.0 Localized edema; Z72.0 Tobacco use; Z79.899 Other long term (current) drug therapy; Z20.828 Contact with and (suspected) exposure to other viral communicable diseases
CPT/HCPCS: 0241U; 36000; 36415; 71045; 71260; 80053; 81001; 82947; 83036; 83880; 84484; 85025; 85379; 85610; 87086; 93005; 93306; 93971; 94760; 94762; 96372; 99285; 99291; J0696; J1650; J1815; A9270-GY